=== PATIENT | female | born 1950 | race Hispanic/Latino ===

== ENCOUNTER 2024-01-22 08:22 | Emergency (ER) | payer MEDICARE ==
[~2024-01-22] VITALS: Ht 165.1 cm; Wt 74.4 kg
[2024-01-22 08:31] VITALS: PULSE 84; RESP 18; TEMP 97.8; O2SAT 99
[2024-01-22] MEDS ORDERED: IBUPROFEN 600 MG TAB PO STA (09:31)
== END 2024-01-22 09:51 | disposition home or self-care (01) ==
LOC: ER 08:32
DX: M25.522 Pain in left elbow (principal); M25.422 Effusion, left elbow; X50.1XXA Overexertion from prolonged static or awkward postures, initial encounter; Y92.89 Other specified places as the place of occurrence of the external cause
CPT/HCPCS: 99283